=== PATIENT | male | born 1970 | race Caucasian/White ===

== ENCOUNTER → 2025-05-20 | Outpatient (CLI) | payer SELFPAY ==
[2025-05-20 22:46] LABS: AST(SGOT) 20 U/L (<=37); Alanine Aminotransfer ALT/SGPT 28 U/L (<=46); Albumin, Serum 4.3 g/dL (3.5-5.0); Alkaline Phosphatase 130 U/L (40-129); Anion Gap 13 (5-15); BUN 16 mg/dL (4-19); BUN/Creat Ratio 21.0 RATIO (10-20); Calcium,Total 9.6 mg/dL (7.6-11.0); Carbon Dioxide 21.2 mmol/L (21.0-32.0); Chloride 102 mmol/L (98-108); Cholesterol 171 mg/dL (<=200); Globulin 2.8 g/dL (2.2-4.2); Glucose 181 mg/dL (70-99); Hematocrit 45.8 % (40-54); Hemoglobin 15.7 g/dL (13.0-16.5); Immature Granulocytes Count 0.030 X10^3/uL (0.0-0.0); Mean Corp Hgb Conc 34.3 g/dL (32-36); Mean Corpuscular Volume 92.3 fL (80-94); Mean Platelet Vol. 10.5 fl (6.2-12.0); NRBC Flagged by Analyzer 0 % (0-5); Platelet Count 213 K/mm3 (150-450); Potassium 4.2 mmol/L (3.3-5.1); RBC Distribution Width CV 13.2 % (11.6-14.6); RBC Distribution Width SD 44.3 fl (35.1-43.9); Red Blood Count 4.96 M/mm3 (4.6-6.2); Triglycerides 486 mg/dL; White Blood Count 11.1 K/mm3 (4.4-11.0)
[2025-05-20 22:47] LABS: Low Density Lipoprotein Calc. 47 mg/dL; Very Low Density Lipoprotein 97 mg/dL (5-40); cholesterol:hdl ratio screen 6.29
== END | disposition home or self-care (01) ==
PROVIDERS: PCP Nurse Practitioner; Referring Provider Nurse Practitioner; Visit Provider Nurse Practitioner
DX: I10 Essential (primary) hypertension (principal); E11.65 Type 2 diabetes mellitus with hyperglycemia; E78.5 Hyperlipidemia, unspecified
CPT/HCPCS: 80053; 80061; 83036; 85025

== ENCOUNTER → 2025-07-29 | Outpatient (CLI) | payer OTHER, SELFPAY ==
--- OUTSIDE RECORDS SUMMARY | 2025-07-29 21:59 | XMS RPT_ITS | CCD ---
Author Organization [facility] Care Team Providers Care Peripheral Vascular Tech Name Role Phone Alex CATHERINE, Samanta Attending Physician Samanta Simmons Primary Care Physician [phone] Alex CATHERINE, Samanta Referring Provider Samanta Johnson NP Referring Unavailable Samanta Johnson NP Attending Unavailable Samanta Johnson NP Primary Care Unavailable Allergies Allergy Classification Reported Allergen(s) Allergy Type Date of Onset Reaction(s) Facility (1 source) metFORMIN Drug Allergy 06-06-2025 [facility] Repository (1 source) metFORMIN Drug Allergy 06-06-2025 Diarrhea [facility] Medications Current Medications Medication Drug Class(es) Dates Sig (Normalized) Sig (Original) aspirin 81 mg oral tablet (2 sources) Platelet Aggregation Inhibitor, Nonsteroidal Anti-inflammatory Drug Start: 05-21-2025 take 1 tablet by mouth once daily atorvastatin 40 mg oral tablet (2 sources) HMG-CoA Reductase Inhibitor Start: 05-20-2025 take 1 tablet by mouth once daily [place] 2-Sox-Tge-Fish Oil (2 sources) Start: 05-21-2025 gabapentin 600 mg oral tablet (2 sources) Anti-epileptic Agent Start: 05-20-2025 take 1 tablet by mouth twice daily pioglitazone 30 mg oral tablet (1 source) Peroxisome Proliferator Receptor alpha Agonist, Peroxisome Proliferator Receptor gamma Agonist, Thiazolidinedione Start: 06-06-2025 take 1 tablet by mouth once daily Start: 06-06-2025 take 1 tablet by mouth once da brenda Semaglutide (2 sources) Start: 05-20-2025 sildenafil 100 mg oral tablet (2 sources) Phosphodiesterase 5 Inhibitor Start: 05-21-2025 telmisartan 80 mg oral tablet (2 sources) Angiotensin 2 Receptor Heidi Start: 05-20-2025 take 1 tablet by mouth once daily Problems Problem Classification Problem Date Documented Date Episodic/Chronic Diabetes mellitus with complications (2 sources) Hyperglycemia due to type 2 diabetes mellitus; Translations: [Type 2 diabetes mellitus with hyperglycemia] 05-20-2025 Chronic Disorders of lipid metabolism (2 sources) Hyperlipidemia; Translations: [Hyperlipidemia, unspecified] 05-20-2025 Chronic Essential hypertension (3 sources) Hypertensive disorder; Translations: [Essential (primary) hypertension] Onset: 06-06-2025 05-20-2025 Chronic Spondylosis; intervertebral disc disorders; other back problems (2 sources) Backache; Translations: [Dorsalgia, unspecified] 05-20-2025 Episodic Results Test Name Value Interpretation Reference Range Facility Absolute lymphocyte countOrd ered By: Samanta Johnson on 05-20-2025 Lymphocytes Auto (Unsp spec) [#/Vol] 2.50 10*3/uL 0.83-4.51 [facility] Absolute neutrophil countOrd ered By: Samanta Johnson on 05-20-2025 Neutrophils (Bld) [#/Vol] 7.9 10*3/uL High 2.0-7.7 [facility] Anion gap in Serum or Plasma Ordered By: Samanta Johnson on 05-20-2025 Anion gap [Moles/Vol] 13 mmol/L 5-15 [facility] Automated lymphocyte count a s percentage of total leukocytesOrdered By: Samanta Johnson on 05-20-2025 Lymphocytes/100 WBC Auto (Unsp spec) 22.5 % 19-41 [facility] BUN/creatinine ratioOrdered By: Samanta Johnson on 05-20-2025 Urea nitrogen/Creatinine [Mass ratio] 21.0 mg/mg High 10-20 [facility] Basophil percentageOrdered B y: Samanta Johnson on 05-20-2025 Basophils/100 WBC (Bld) 0.4 % 0-1 [facility] Bilirubin, totalOrdered By: Samanta Johnson on 05-20-2025 Bilirubin [Mass/Vol] 0.39 mg/dL 0.00-1.30 [facility] CBC W/Diff, Automatedon 04-23 Absolute Lymph 2.50 X10 3/uL Normal 0.83-4.51 [facility] Comment on above: Performed By: #### L 500.4100, L501.9985, L500.4050, L100.0100 #### [facility] [address] [place], [address] Absolute Neut 7.9 X10 3/uL High 2.0-7.7 [facility] Comment on above: Performed By: #### L 500.4100, L501.9985, L500.4050, L100.0100 #### [facility] [address] [place], [address] Basophils/100 WBC (Bld) 0.4 % Normal 0-1 [facility] Comment on above: Performed By: #### L 500.4100, L501.9985, L500.4050, L100.0100 #### [facility] [address] [place], [address] Eosinophils/100 WBC (Bld) 0.2 % Normal 0-5 [facility] Comment on above: Performed By: #### L 500.4100, L501.9985, L500.4050, L100.0100 #### [facility] [address] [place], [address] Erythrocyte distribution width (RBC) [Ratio] 13.2 % Normal 11.6-14.6 [facility] Comment on above: Performed By: #### L 500.4100, L501.9985, L500.4050, L100.0100 #### [facility] [address] [place], [address] Hematocrit (Bld) [Volume fraction] 45.8 % Normal 40-54 [facility] Comment on above: Performed By: #### L 500.4100, L501.9985, L500.4050, L100.0100 #### [facility] [address] [place], [address] Hemoglobin (Bld) [Mass/Vol] 15.7 g/dL Normal 13.0-16.5 [facility] Comment on above: Performed By: #### L 500.4100, L501.9985, L500.4050, L100.0100 #### [facility] [address], [address] IG% 0.300 Normal 0.0-0.9 [facility] Comment on above: Result Comment: IG% - Immature Granulocytes (promyelocytes, myelocytes and metamyelocytes) > 1% indicates that a LEFT SHIFT is Present. Performed By: #### L 500.4100, L501.9985, L500.4050, L100.0100 #### [facility] [address] [place], [address] Lymphocytes/100 WBC (Bld) 22.5 % Normal 19-41 [facility] Comment on above: Performed By: #### L 500.4100, L501.9985, L500.4050, L100.0100 #### [facility] [address] [place], [address] MCH (RBC) [Entitic mass] 31.7 pg Normal 27.0-32.0 [facility] Comment on above: Performed By: #### L 500.4100, L501.9985, L500.4050, L100.0100 #### [facility] [address] [place], [address] MCHC (RBC) [Mass/Vol] 34.3 g/dL Normal 32-36 [facility] Comment on above: Performed By: #### L 500.4100, L501.9985, L500.4050, L100.0100 #### [facility] [address] [place], [address] MCV (RBC) [Entitic vol] 92.3 fL Normal 80-94 [facility] Comment on above: Performed By: #### L 500.4100, L501.9985, L500.4050, L100.0100 #### [facility] [address] [place], [address] Monocytes/100 WBC (Bld) 6.1 % Normal 0-10 [facility] Comment on above: Performed By: #### L 500.4100, L501.9985, L500.4050, L100.0100 #### [facility] [address] [place], [address] Neutrophils/100 WBC (Bld) 70.5 % High 47-70 [facility] Comment on above: Performed By: #### L 500.4100, L501.9985, L500.4050, L100.0100 #### [facility] [address] [place], [address] Nucleated RBC (Bld) [#/Vol] 0 10*3/uL Normal 0-5 [facility] Comment on above: Performed By: #### L 500.4100, L501.9985, L500.4050, L100.0100 #### [facility] [address] [place], [address] Platelet mean volume (Bld) [Entitic vol] 10.5 fL Normal 6.2-12.0 [facility] Comment on above: Performed By: #### L 500.4100, L501.9985, L500.4050, L100.0100 #### [facility] [address] [place], [address] Platelets (Bld) [#/Vol] 213 10*3/uL Normal 150-450 [facility] Comment on above: Performed By: #### L 500.4100, L501.9985, L500.4050, L100.0100 #### [facility] [address] [place], [address] RBC (Bld) [#/Vol] 4.96 10*6/uL Normal 4.6-6.2 [facility] Comment on above: Performed By: #### L 500.4100, L501.9985, L500.4050, L100.0100 #### [facility] [address] [place], [address] RDW SD 44.3 fl High 35.1-43.9 [facility] Comment on above: Performed By: #### L 500.4100, L501.9985, L500.4050, L100.0100 #### [facility] [address] [place], [address] WBC (Bld) [#/Vol] 11.1 10*3/uL High 4.4-11.0 [facility] Comment on above: Performed By: #### L 500.4100, L501.9985, L500.4050, L100.0100 #### [facility] [address] [place], [address] Calculated very low density lipoprotein (VLDL) cholesterol measurementOrdered By: Samanta Johnson on 05-20-2025 Calculated very low density lipoprotein (VLDL) cholesterol measurement 97 mg/dL High 5-40 [facility] Carbon dioxide, total [Moles /volume] in Central venous bloodOrdered By: Samanta Johnson on 05-20-2025 CO2 [Moles/Vol] 21.2 mmol/L 21.0-32.0 [facility] Chloride assayOrdered By: Do ra Johnson on 05-20-2025 Chloride [Moles/Vol] 102 mmol/L 98-108 [facility] Comprehensive Metabolic Prof ilon 05-20-2025 Albumin [Mass/Vol] 4.3 g/dL Normal 3.5-5.0 [facility] Comment on above: Performed By: #### L 500.4100, L501.9985, L500.4050, L100.0100 #### [facility] [address] [place], [address] Albumin/Globulin [Mass ratio] 1.5 {ratio} Normal 0.9-2.4 [facility] Comment on above: Performed By: #### L 500.4100, L501.9985, L500.4050, L100.0100 #### [facility] [address] [place], [address] ALK PHOS 130 U/L High 40-129 [facility] Comment on above: Performed By: #### L 500.4100, L501.9985, L500.4050, L100.0100 #### [facility] [address] [place], [address] ALT [Catalytic activity/Vol] 28 U/L Normal <=46 [facility] Comment on above: Performed By: #### L 500.4100, L501.9985, L500.4050, L100.0100 #### [facility] [address] [place], [address] AST [Catalytic activity/Vol] 20 U/L Normal <=37 [facility] Comment on above: Performed By: #### L 500.4100, L501.9985, L500.4050, L100.0100 #### [facility] [address] [place], [address] Bilirubin [Mass/Vol] 0.39 mg/dL Normal 0.00-1.30 [facility] Comment on above: Performed By: #### L 500.4100, L501.9985, L500.4050, L100.0100 #### [facility] [address] [place], [address] BUN/CRE 21.0 RATIO High 10-20 [facility] Comment on above: Performed By: #### L 500.4100, L501.9985, L500.4050, L100.0100 #### [facility] [address] [place], [address] Calcium [Mass/Vol] 9.6 mg/dL Normal 7.6-11.0 [facility] Comment on above: Performed By: #### L 500.4100, L501.9985, L500.4050, L100.0100 #### [facility] [address] [place], [address] Chloride [Moles/Vol] 102 mmol/L Normal 98-108 [facility] Comment on above: Performed By: #### L 500.4100, L501.9985, L500.4050, L100.0100 #### [facility] [address] [place], [address] CO2 [Moles/Vol] 21.2 mmol/L Normal 21.0-32.0 [facility] Comment on above: Performed By: #### L 500.4100, L501.9985, L500.4050, L100.0100 #### [facility] [address] [place], [address] Creatinine [Mass/Vol] 0.77 mg/dL Normal 0.70-1.20 [facility] Comment on above: Performed By: #### L 500.4100, L501.9985, L500.4050, L100.0100 #### [facility] [address] [place], [address] GAP 13 Normal 5-15 [facility] Comment on above: Performed By: #### L 500.4100, L501.9985, L500.4050, L100.0100 #### [facility] [address] [place], [address] GFR/1.73 sq M.predicted among non-blacks MDRD (S/P/Bld) [Vol rate/Area] 107 mL/min/{1.73_m2} Normal >60 [facility] Comment on above: Result Comment: mL/m in/1.73m2 CKD-EPI Creatinine Equation (2020) Performed By: #### L 500.4100, L501.9985, L500.4050, L100.0100 #### [facility] [address] [place], [address] Globulin (S) [Mass/Vol] 2.8 g/dL Normal 2.2-4.2 [facility] Comment on above: Performed By: #### L 500.4100, L501.9985, L500.4050, L100.0100 #### [facility] [address] [place], [address] Glucose [Mass/Vol] 181 mg/dL High 70-99 [facility] Comment on above: Performed By: #### L 500.4100, L501.9985, L500.4050, L100.0100 #### [facility] [address] [place], [address] Potassium [Moles/Vol] 4.2 mmol/L Normal 3.3-5.1 [facility] Comment on above: Performed By: #### L 500.4100, L501.9985, L500.4050, L100.0100 #### [facility] [address] [place], [address] Sodium [Moles/Vol] 136 mmol/L Normal 133-145 [facility] Comment on above: Performed By: #### L 500.4100, L501.9985, L500.4050, L100.0100 #### [facility] [address] [place], [address] T PROT 7.1 g/dL Normal 5.9-8.4 [facility] Comment on above: Performed By: #### L 500.4100, L501.9985, L500.4050, L100.0100 #### [facility] [address] [place], [address] Urea nitrogen [Mass/Vol] 16 mg/dL Normal 4-19 [facility] Comment on above: Performed By: #### L 500.4100, L501.9985, L500.4050, L100.0100 #### [facility] [address] [place], [address] Eosinophil percentageOrdered By: Samanta Johnson on 05-20-2025 Eosinophils/100 WBC (Bld) 0.2 % 0-5 [facility] Erythrocyte distribution wid th ratioOrdered By: Samantaaudrey Johnson on 05-20-2025 Erythrocyte distribution width (RBC) [Ratio] 13.2 % 11.6-14.6 [facility] Erythrocyte distribution wid th standard deviationOrdered By: Samantaaudrey Johnson on 05-20-2025 Erythrocyte distribution width (RBC) [Ratio] 44.3 fl High 35.1-43.9 [facility] Glomerular filtration rate ( GFR) estimation/1.73 sq m using serum, plasma, or whole bOrdered By: Samantaaudrey Johnson on 05-20-2025 GFR/1.73 sq M.predicted among non-blacks MDRD (S/P/Bld) [Vol rate/Area] 107 mL/min/{1.73_m2} >60 [facility] Comment on above: mL/min/1.73m2 CKD-EP I Creatinine Equation (2020) Hematocrit Auto (Bld) [Volum e fraction]Ordered By: Samanta Johnson on 05-20-2025 Hematocrit (Bld) [Volume fraction] 45.8 % 40-54 [facility] Hemoglobin A1con 05-20-2025 HbA1c (Bld) [Mass fraction] 8.2 % High <=5.6 [facility] Comment on above: Result Comment: Norm al < 5.7 % Prediabetic 5.7 - 6.4 % Diabetic >or= 6.5 % Please note range changes. Performed By: #### L 500.4100, L501.9985, L500.4050, L100.0100 #### [facility] [address] [place], [address] Hemoglobin A1c percentageOrd ered By: Samanta Johnson on 05-20-2025 HbA1c (Bld) [Mass fraction] 8.2 % High <5.7 [facility] Comment on above: Normal < 5.7 % Predi abetic 5.7 - 6.4 % Diabetic >or= 6.5 % Please note range changes. Hemoglobin measurementOrdere d By: Samanta Johnson on 05-20-2025 Hemoglobin (Bld) [Mass/Vol] 15.7 g/dL 13.0-16.5 [facility] Immature granulocytes/100 WB C Auto (Bld)Ordered By: Samanta Johnson on 05-20-2025 Immature granulocytes/100 WBC (Bld) 0.300 % 0.0-0.9 [facility] Comment on above: IG% - Immature Granu locytes (promyelocytes, myelocytes and metamyelocytes) > 1% indicates that a LEFT SHIFT is Present. LDL calc ser/plasOrdered By: Samanta Johnson on 05-20-2025 Cholesterol in LDL [Mass/Vol] 47 mg/dL [facility] Comment on above: Vrzhzipqpj=818-602 m g/dL & Higher Ycku=480 mg/dL or greaterFriedwald Equation for LDL-C Laboratory - Chemistry and C hemistry - challengeOrdered By: Samanta Johnson on 05-20-2025 AST [Catalytic activity/Vol] 20 U/L <38 [facility] Lipid Profileon 05-20-2025 CHOL:HDL 6.29 Normal [facility] Comment on above: Performed By: #### L 500.4100, L501.9985, L500.4050, L100.0100 #### [facility] [address] [place], [address] Cholesterol in LDL [Mass/Vol] 47 mg/dL Normal [facility] Comment on above: Result Comment: Bord gxfwyc=880-191 mg/dL Higher Oyqb=016 mg/dL or greater Friedwald Equation for LDL-C Performed By: #### L 500.4100, L501.9985, L500.4050, L100.0100 #### [facility] [address] [place], [address] Cholesterol in VLDL [Mass/Vol] 97 mg/dL High 5-40 [facility] Comment on above: Performed By: #### L 500.4100, L501.9985, L500.4050, L100.0100 #### [facility] [address] [place], [address] Cholesterol [Mass/Vol] 171 mg/dL Normal <=200 [facility] Comment on above: Result Comment: Chol esterol level, Desirable <200 mg/dL Borderline high cholesterol 200-239 mg/dL High cholesterol >=240 mg/dL Recommendations of the NCEP Adult Treatment Panel for the following risk-cutoff thresholds for the [place] population. Performed By: #### L 500.4100, L501.9985, L500.4050, L100.0100 #### [facility] [address] [place], [address] Cholesterol in HDL [Mass/Vol] 27 mg/dL Low [facility] Comment on above: Result Comment: Olivia onal Cholesterol Education Program (NCEP) guidelines: <40 mg/dL: Low HDL-cholesterol (major risk factor for CHD) >= 60 mg/dL: High HDL-cholesterol (negative risk factor for CHD) HDL-cholesterol is affected by a number of factors, e.g. smoking, exercise, hormones, sex and age. Performed By: #### L 500.4100, L501.9985, L500.4050, L100.0100 #### [facility] [address] [place], [address] Triglyceride [Mass/Vol] 486 mg/dL High [facility] Comment on above: Result Comment: The drugs N-Acetylcysteine and Metamizole may falsely depress this assay. Normal range: <150 mg/dL Borderline High: 150-199 mg/dL High: 200-499 mg/dL Very High: >500 mg/dL Performed By: #### L 500.4100, L501.9985, L500.4050, L100.0100 #### [facility] [address] [place], [address] MCV (mean corpuscular volume ) determinationOrdered By: Samanta Johnson on 05-20-2025 MCV (RBC) [Entitic vol] 92.3 fL 80-94 [facility] Mean corpuscular hemoglobin (MCH) determinationOrdered By: Samanta Johnson on 05-20-2025 MCH (RBC) [Entitic mass] 31.7 pg 27.0-32.0 [facility] Mean corpuscular hemoglobin concentration (MCHC) determinationOrdered By: Samanta Johnson on 05-20-2025 MCHC (RBC) [Mass/Vol] 34.3 g/dL 32-36 [facility] Mean platelet volume determi nationOrdered By: Samanta Johnson on 05-20-2025 Platelet mean volume (Bld) [Entitic vol] 10.5 fL 6.2-12.0 [facility] Monocyte percentageOrdered B y: Samanta Johnson on 05-20-2025 Monocytes/100 WBC (Bld) 6.1 % 0-10 [facility] Neutrophil percentageOrdered By: Samanta Johnson on 05-20-2025 Neutrophils/100 WBC (Bld) 70.5 % High 47-70 [facility] Nucleated red blood cell per centageOrdered By: Samanta Johnson on 05-20-2025 Nucleated RBC/100 WBC (Bld) [Ratio] 0 % 0-5 [facility] Platelet countOrdered By: Do ra Johnson on 05-20-2025 Platelets (Bld) [#/Vol] 213 10*3/uL 150-450 [facility] Potassium measurement (mass/ volume)Ordered By: Samanta Johnson on 05-20-2025 Potassium (Unsp spec) [Mass/Vol] 4.2 mmol/L 3.3-5.1 [facility] RBC Auto (Bld) [#/Vol]Ordere d By: Samanta Johnson on 05-20-2025 RBC (Bld) [#/Vol] 4.96 10*6/uL 4.6-6.2 [facility] Screening total cholesterol/ high density lipoprotein (HDL) cholesterol ratioOrdered By: Samanta Johnson on 05-20-2025 Cholesterol.total/Choles terol in HDL [Mass ratio] 6.29 {ratio} [facility] Serum creatinine measurement (mass/volume)Ordered By: Samanta Johnson on 05-20-2025 Creatinine [Mass/Vol] 0.77 mg/dL 0.70-1.20 [facility] Serum globulin measurementOr dered By: Samanta Johnson on 05-20-2025 Globulin (S) [Mass/Vol] 2.8 g/dL 2.2-4.2 [facility] Serum glucose measurement (m ass/volume)Ordered By: Samanta Johnson on 05-20-2025 Glucose [Mass/Vol] 181 mg/dL High 70-99 [facility] Serum or plasma alanine schumacher otransferase (ALT) measurementOrdered By: Samanta Johnson on 05-20-2025 ALT [Catalytic activity/Vol] 28 U/L <47 [facility] Serum or plasma albumin yusra urement (mass/volume)Ordered By: Samanta Johnson on 05-20-2025 Albumin [Mass/Vol] 4.3 g/dL 3.5-5.0 [facility] Serum or plasma albumin/glob ulin mass ratioOrdered By: Samanta Johnson on 05-20-2025 Albumin/Globulin [Mass ratio] 1.5 {ratio} 0.9-2.4 [facility] Serum or plasma alkaline lizbeth sphatase measurementOrdered By: Samanta Johnson on 05-20-2025 ALP [Catalytic activity/Vol] 130 U/L High 40-129 [facility] Serum or plasma calcium yusra urement (mass/volume)Ordered By: Samanta Johnson on 05-20-2025 Calcium [Mass/Vol] 9.6 mg/dL 7.6-11.0 [facility] Serum or plasma cholesterol in HDL measurement (mass/volume)Ordered By: Samanta Johnson on 05-20-2025 Cholesterol in HDL [Mass/Vol] 27 mg/dL Low >40 [facility] Comment on above: National Cholesterol Education Program (NCEP) guidelines:<40 mg/dL: Low HDL-cholesterol (major risk factor for CHD)>= 60 mg/dL: High HDL-cholesterol (negative risk factor for CHD)HDL-cholesterol is affected by a number of factors, e.g. smoking, exercise, hormones, sex and age. Serum or plasma cholesterol measurement (mass/volume)Ordered By: Samanta Johnson on 05-20-2025 Cholesterol [Mass/Vol] 171 mg/dL <201 [facility] Comment on above: Cholesterol level, D esirable <200 mg/dLBorderline high cholesterol 200-239 mg/dLHigh cholesterol >=240 mg/dLRecommendations of the NCEP Adult Treatment Panel for the following risk-cutoff thresholds for the [place] population. Serum or plasma urea nitroge n measurement (mass/volume)Ordered By: Samanta Johnson on 05-20-2025 Urea nitrogen [Mass/Vol] 16 mg/dL 4-19 [facility] Sodium levelOrdered By: Samanta Johnson on 05-20-2025 Sodium [Moles/Vol] 136 mmol/L 133-145 [facility] Total proteinOrdered By: Clarke Johnson on 05-20-2025 Protein [Mass/Vol] 7.1 g/dL 5.9-8.4 [facility] Triglycerides measurementOrd ered By: Samanta Johnson on 05-20-2025 Triglyceride [Mass/Vol] 486 mg/dL High <199 [facility] Comment on above: The drugs N-Acetylcy steine and Metamizole may falsely depress this assay. Normal range: <150 mg/dLBorderline High: 150-199 mg/dLHigh: 200-499 mg/dLVery High: >500 mg/dL White blood cell (WBC) count Ordered By: Samanta Johnson on 05-20-2025 WBC (Bld) [#/Vol] 11.1 10*3/uL High 4.4-11.0 [facility] Vital Signs Date Time Vital Sign Value Performing Clinician Faci lity 05-21-2025 08:19040 Body height 158.75 cm Samanta HUFFMANC Work Phone: [facility] 05-21-2025 08:190400 Body mass index (BMI) [Ratio] 35.8 kg/m2 Samanta CATHERINE Work Phone: [facility] 05-21-2025 08:19-0400 Body temperature 97.9 [degF] Samantaaudrey SimmonsJohnson [employer] Work Phone: [facility] 05-21-2025 08:19-0400 Body weight 90.26 kg Samantaaudrey SimmonsJohnson [employer] Work Phone: [facility] 05-21-2025 08:19-0400 Diastolic blood pressure 70 mm[Hg] Samanta Johnson [employer] Work Phone: [facility] 05-21-2025 08:19-0400 Heart rate 104 /min Samanta Johnson [employer] Work Phone: [facility] 05-21-2025 08:19-0400 Respiratory rate 18 /min Samanta Johnson [employer] Work Phone: [facility] 05-21-2025 08:19-0400 SaO2% (BldA) [Mass fraction] 97 % Samanta Johnson [employer] Work Phone: [facility] 05-21-2025 08:19-0400 Systolic blood pressure 114 mm[Hg] Samanta Johnson [employer] Work Phone: [facility] Encounters Encounter Date Encounter Type Care Provider Facility Start: 05-20-2025 End: 05-20-2025 ambulatory Samantaaudrey SimmonsJohnson [employer] Work Phone: -Laboratory Specimen Start: 05-20-2025 End: 05-20-2025 Patient encounter procedure Samanta Johnson [employer] -Laboratory Specimen Work Phone: Start: 05-20-2025 End: 05-20-2025 ambulatory Samanta Johnson [employer] Work Phone: -[facility] Start: 05-20-2025 End: 05-20-2025 ambulatory Samanta Johnson [employer] Facility:[facility] Payers Date Payer Category Payer Self-pay Unknown [id number] Unknown [id number] Social History Date Type Detail Facility Start: 05-21-2025 Tobacco smoking stat us NHIS Current Heavy tobacco smoker [facility] Sex Male [facility] Start: 1970 Sex Assigned At Male [facility] Progress note 05-20-2025 Note Date & Type Note Facility 05-20-2025 Progress note [facility] Evaluation note 05-20-2025 Note Date & Type Note Facility 05-20-2025 Evaluation note Diagnosis Onset Date Resolution Hyperglycemia due to type 2 diabetes mellitus acute Septemb er 2024 4:54pm Hyperlipidemia acute May 20, 2025 4:54pm [facility] Work Phone: Progress note 05-20-2025 Note Date & Type Note Facility 05-20-2025 Progress note Note Date/Time May 20, 2025 11:59pm [facility] [address] [place] [address] OFFICE VISIT Date of Service: 05/20/25 MR#: [id number] Acct: [id number] Name: CHECO PARKINSON Lázaro Rep #: [id number] : 1970 Provider: FLORIN Johnson Age/Sex: 54/M Location: [facility] Status: Signed Intake Vital Signs 05/21/25 08:19 Height 5 ft 2.5 in Weight: 199 lb BMI 35.8 BP 114/70 Blood Pressure Location Rt brachial Position Sitting Respiration 18 Temp 97.9 F Temp Source Surface Pulse 104 H Pulse Source Doppler Pulse Oximetry (%) 97 Oxygen Delivery Method room air Intake Visit Reasons: medication refills/Labs Accompanied by: Is patient in pain?: No Medications ?Medication ?Instructions ?Recorded ?Confirmed ?Type atorvastatin 40 mg tablet (Lipitor) 40 mg PO QDAY #90 tabs 05/20/25 05/20/25 Rx gabapentin 600 mg tablet 600 mg PO BID pain in the ba ck 05/20/25 05/20/25 Rx #60 tabs semaglutide 1 mg/dose (4 mg/3 mL) 1 mg (0.75 mL) subcu t QWEEK DM2 #3 05/20/25 05/20/25 Rx subcutaneous pen injector (Ozempic) mL telmisartan 80 mg tablet 80 mg PO QDAY #90 tabs 05/2005/20/25 Rx aspirin 81 mg tablet 81 mg PO QDAY 05/21/2505/21 History omega 5-hox-jdt-fish oil 300 1 cap PO QDAY 05/21/25 History mg-1,000 mg capsule (Fish Oil) sildenafil 100 mg tablet (Viagra) 100 mg PO QDAY PRN 1 05/21/25 History PFSH Medical History (Updated 05/21/25 @ 08:51 by Samanta Johnson NP, [employer]) Tobacco abuse Hyperlipidemia Erectile dysfunction Hyperglycemia due to type 2 diabetes mellitus Hypertension Family History (Updated 05/21/25 @ 08:23 by Samanta Johnson NP, [employer]) Father Diabetes Hypertension Suicide Grandfather Diabetes Uncle Diabetes Aunt Diabetes Mother Hypertension Social History (Updated 05/21/25 @ 08:29 by Samanta Johnson NP, [employer]) current occupational status: employed Smoking Status: Heavy Smoker (>10/day) substance use type: marijuana caffeine: Yes HPI HPI HPI HPI: CHECO PARKINSON, is a 54 M who presents to the office today for labs meds and physical for his DM ROS Const Constitutional: No anorexia, body ache, chills, excessive sweating, fatigue, fever(s), frequent falls, headache(s), decreased energy, malaise, night sweats, snoring, weakness, weight change, sleep problems, abnormal sleep pattern, changein appetite or other Eyes Eyes: No blurry vision, change in vision, double vision, discharge, dry eyes, bulging eyes, floaters, visual disturbances, eye pain, Light sensitivity, spots in vision, tunnel vision or other ENT ENT: No abnormal hearing, ear or mastoid pain, ear discharge, ear pressure, hearing loss, tinnitus, dizziness/vertigo, balance problems, nosebleed/epistaxis, nasal congestion, nasal obstruction, nose pain, sinus pressure, sinus pain, nasal discharge, post nasal drip, headache(s), facial pain, dental pain, dry mouth, difficulty swallowing, bad breath, hoarseness, lipswelling, mouth lesions, mouth pain, neck pain, sore throat, tongue swelling, throat swelling or other Resp Respiratory: No cough, change in phlegm color, chest congestion, excessive phlegm production, hemoptysis, pain on inspiration, shortness of breath, pain with cough, snoring, stridor, wheezing or other Cardio Cardiology: No chest pain at rest, chest pain with exertion, leg pain with exertion, excessive sweating, shortness of breath, dyspnea on exertion, generalized swelling, irregular heart rhythm, lightheadedness, orthopnea, radiating jaw, neck or arm pain, fast heart rate, slow heart rate, palpitations or other Gastro GI: No abdominal pain, No belching, No bloating, No change in bowel habits, No change in stool character, No coffee ground emesis, No constipation, No cramping, No diarrhea, No heartburn, No Difficulty Swallowing, No feeling full early, No excessive flatus, No incontinent of stools, No Vomiting blood/hematemesis, No Blood in stool, No loose stools, No Black,tarry stools, Nonausea/dyspepsia, No pain with swallowing, No vomiting, No hemorrhoids, No rectal pain and No other Genitourinary: No difficulty urinating, burning urination, painful urination, urinary frequency, urinary urgency or blood in urine Musc Musculoskeletal: No abnormal gait, joint pain, back pain, deformity, joint swelling, limited range of motion, loss of height, muscle cramps, muscle weakness, decreased muscle mass, myalgias, neck pain, numbness, radiating pain into limb, stiffness, tingling, restless legs, leg pain with exertion or other Skin Skin: No acne, hair loss in leg, change in hair, nail changes, boil, change in skin color, dry skin, redness, excessive hair growth, yellowing of the eye, lesions, itchy eyes, rash, skin pain, skin ulcer, sores, skin swelling, wounds or other Breast Breast: No other Neuro Neurology: No abnormal gait, abnormal hearing, abnormal movements, abnormal speech, behavioral changes, confusion, unsteady gait/balance, dizziness, weakness, frequent falls, headache(s), lack of coordination, loss of vision, memory loss, numbness, tingling, visual disturbances, restless legs, fainting, tremor(s) or other Psych Psychiatric: No abnormal sleep pattern, No lack of enjoyment, No anxiety, No behavioral changes, No change in appetite, No confusion, No depression, No difficulty concentrating, No hopelessness, No irritability, No memory loss, No mood swings, No panic attacks, No paranoia, No Thoughts of harming yourself/Others, No hallucinations and No other Endo Endo: No excessive sweating, No fatigue and No other Aller/Imm Allergy/Immunologic: No itchy eyes, lip swelling, throat swelling, tongue swelling or wheezing Exam Const Constitutional: Yes cooperative and Yes healthy appearing Orientation: Yes alert, awake and oriented x3 HENMT Head: Yes normocephalic Ear: Yes hearing grossly normal bilaterally TM-Right: normal TM-Left: normal Pinna-Right: within normal limits Pinna-Left: within normal limits Face: Yes normal facial exam Nose: Yes external nose normal Mouth: Yes oral mucosae normal Neck Neck: normal visual inspection Thyroid: thyroid normal Eyes General: Yes appearance normal, both eyes and all related structures Chest Chest palpation & inspection: Yes normal inspection of the chest Resp Effort & Inspection: No stridor Auscultation: Yes clear to auscultation bilaterally Cardio Palpitation: Yes normal PMI Rate: Yes regular rate Rhythm: Yes regular rhythm GI Inspection: Yes normal to inspection Auscultation: Yes normal bowel sounds Palpation: Yes soft and no hepatosplenomegaly Rectal Exam: No hemorrhoids General: Yes bladder normal to inspection and bladder normal to palpation; No CVA tenderness Musc Cervical Spine: Yes cervical ROM normal Thoracic/Lumbar Spine: Yes thoracic and lumbar spine normal to inspection Skin General: no rashes or lesions noted Lesions: Yes no lesions Extrem General: Yes normal to inspection Neuro General: Yes CN's II-XI intact bilaterally, alert, oriented x3 and deep tendon reflexes 2+ bilaterally Cranial Nerves: Yes CN's II-XI intact bilaterally Speech: Yes speech normal Gait: Yes normal gait Motor: No weakness Psych Appearance: Positive grossly normal Mood: Positive congruent mood Affect: Positive normal affect Speech and Movement: Yes speech and movement normal Attitude: Yes cooperative Thought Process: Yes normal Thought Content: Yes normal Judgment: Yes judgment good Coding Level of Care Code Off vis,new,level 4 Diagnoses Hyperlipidemia E78.5 Hyperglycemia due to type 2 diabetes mellitus E11.65 Assessment and Plan Assessment and Plan (1) Hyperlipidemia: Status: Acute (2) Hyperglycemia due to type 2 diabetes mellitus: Status: Acute Orders: Orders CBC W/Diff, Automated 05/20/25 E11.65 - Type 2 diabetes mellitus with hyperglycemia, E78.5 - Hyperlipidemia, unspecified, I10 - Essential (primary) hypertension Hemoglobin A1c 05/20/25 E11.65 - Type 2 diabetes mellitus with hyperglycemia, E78.5 - Hyperlipidemia, unspecified, I10 - Essential (primary) hypertension Lipid Profile 05/20/25 E11.65 - Type 2 diabetes mellitus with hyperglycemia, E78.5 - Hyperlipidemia, unspecified, I10 - Essential (primary) hypertension Comprehensive Metabolic Profil 05/20/25 E11.65 - Type 2 diabetes mellitus with hyperglycemia, E78.5 - Hyperlipidemia, unspecified, I10 - Essential (primary) hypertension Medications: New semaglutide (Ozempic) 1 mg (0.75 mL) subcut QWEEK 3 mL 12RF DM2 E11.65 - Type 2diabetes mellitus with hyperglycemia telmisartan 80 mg PO QDAY 90 tabs 0RF gabapentin 600 mg PO BID 60 tabs 12RF pain in the back atorvastatin (Lipitor) 40 mg PO QDAY 90 tabs 3RF Patient Instructions: Take the medication as prescribed follow up in 3 months. Will call with Lab results 05/21/25 0908 <Electronically signed by Samanta Singletary on [employer]> Date _ Samanta Johnson NP [employer] CC: ~ [facility] Work Phone: Reason for referral (narrative) Note Date & Type Note Facility Reason for referral (narrative) No reason for referral information available [facility] Work Phone: Chief Complaint and Reason for Visit Chief Complaint Admit Date medication refills/Labs May 20, 2025 4:54pm Reason for Visit Admit Date Hyperglycemia due to type 2 diabetes steffi litus May 20, 2025 4:54pm Hyperlipidemia May 20, 2025 4:54pm Family History Relationship Condition Age at Onset Recorded Date/T francia father Diabetes mellitus Unknown Hypertension Unknown Suicide Unknown grandfather Diabetes mellitus Unknown uncle Diabetes mellitus Unknown aunt Diabetes mellitus Unknown mother Hypertension Unknown Summary Purpose Advance Directives No Advanced Directives Records Found Additional Source Comments Care Teams (unrecognized sec tion and content) Team Status: Active Member Role/Relationship Status Dates Samanta Johnson [employer], [employer] Primary care physician Active Team Status: Inactive Member Role/Relationship Status Dates Samanta Johnson NP [employer] Attending physician Active Start: May 20, 2025 End: May 20, 2025 Team Status: Active Member Role/Relationship Status Dates Samanta Johnson NP [employer] Primary care physician Active Start: May 20, 2025 Samanta Johnson NP, [employer] Attending physician Active Start: May 20, 2025 Samanta Johnson NP, NP-C Referring Provider Active Start: May 20, 2025 Team Status: Inactive Member Role/Relationship Status Dates Samanta Johnson NP [employer] Primary care physician Active Start: May 20, 2025 End: May 20, 2025 Samanta Johnson NP, NP-C Attending physician Active Start: May 20, 2025 End: May 20, 2025 Samanta Johnson NP [employer] Referring Provider Active Start: May 20, 2025 End: May 20, 2025 Goals (unrecognized section and content) Goals may be documented in a n alternate sectionGoals may be documented in an alternate section (unrecognized sect ion and content) No Status Records Found INFORMATION SOURCE (unrecogn ized section and content) DATE CREATED AUTHOR 06/08/2025 [facility] FOR RECORDS PERTAINING TO PATIENTS WHO ARE OR HAVE BEEN ENROLLED IN A CHEMICAL DEPENDENCY/SUBSTANCEABUSE PROGRAM, SOME INFORMATION MAY BE OMITTED. This clinical summary was aggregated from multiple sources. Caution should be exercised in using it in the provision of clinical care. This summary normalizes information from multiple sources, and as a consequence, information in this document may materially change the coding, format and clinical context of patient data. In addition, data may be omitted in some cases. CLINICAL DECISIONS SHOULD BE BASED ON THE PRIMARY CLINICAL RECORDS. [employer] [facility]. provides no warranty or guarantee of the accuracy or completeness of information in this document.
[2025-07-29 22:13] LABS: Hematocrit 37.4 % (40-54); Hemoglobin 12.4 g/dL (13.0-16.5); Immature Granulocytes Count 0.040 X10^3/uL (0.0-0.0); Mean Corp Hgb Conc 33.2 g/dL (32-36); Mean Corpuscular Volume 94.9 fL (80-94); Mean Platelet Vol. 10.2 fl (6.2-12.0); NRBC Flagged by Analyzer 0 % (0-5); Platelet Count 418 K/mm3 (150-450); RBC Distribution Width CV 14.1 % (11.6-14.6); RBC Distribution Width SD 48.5 fl (35.1-43.9); Red Blood Count 3.94 M/mm3 (4.6-6.2); White Blood Count 11.7 K/mm3 (4.4-11.0)
[2025-07-29 22:28] LABS: AST(SGOT) 32 U/L (<=37); Alanine Aminotransfer ALT/SGPT 67 U/L (<=46); Albumin, Serum 3.8 g/dL (3.5-5.0); Alkaline Phosphatase 175 U/L (40-129); Anion Gap 12 (5-15); BUN 17 mg/dL (4-19); BUN/Creat Ratio 24.0 RATIO (10-20); Calcium,Total 10.1 mg/dL (7.6-11.0); Carbon Dioxide 26.5 mmol/L (21.0-32.0); Chloride 98 mmol/L (98-108); Globulin 3.5 g/dL (2.2-4.2); Glucose 249 mg/dL (70-99); Potassium 4.9 mmol/L (3.3-5.1)
== END | disposition home or self-care (01) ==
PROVIDERS: PCP Nurse Practitioner; Referring Provider Nurse Practitioner; Visit Provider Nurse Practitioner
DX: E11.65 Type 2 diabetes mellitus with hyperglycemia (principal); R74.8 Abnormal levels of other serum enzymes
CPT/HCPCS: 80053; 85025